=== PATIENT | female | born 1930 | race Caucasian/White ===

== ENCOUNTER 2017-01-10 19:35 | Inpatient (IN) | payer MEDICARE, OTHER ==
[2017-01-10] MEDS ORDERED: Acetaminophen 500 MG Tab ONE (20:22)
[2017-01-10] MEDS ORDERED: Acetaminophen 500 MG Tab PO ONE (20:26)
[2017-01-10 20:42] LABS: CHLORIDE,CL 102 mEq/L (98-106); SODIUM,NA 139 mEq/L (136-145)
--- NOTE | 2017-01-10 21:01 | EDM.PDOC ---
ED HISTORY OF PRESENT ILLNESS - General Chief Complaint: Respiratory Problem Stated Complaint: wheezing, cough Time Seen by Provider: 01/10/17 20:15 Source of Information: Reports: Patient History Limitations: Reports: No limitations - History of Present Illness INITIAL COMMENTS - FREE TEXT/NARRATIVE: REZA IS AN 86 YO FEMALE WHO PRESENTS TO THE ER WITH CONCERNS OF A COUGH AND NOT FEELING WELL. SYMPTOMS INITIALLY STARTED LAST WEEK MONDAY AND HAVE PROGRESSIVELY WORSENED. STATES SHE HAS BEEN RUNNING A LOW GRADE FEVER NOW AND THE COUGH IS GETTING WORSE. ADMITS TO COUGHING UP YELLOWISH PHLEGM. YOHAN, REZA 'S DAUGHTER, IS PRESENT AND STATES SHE FELT SHE NEEDED TO BE SEEN IN THE ER DUE TO THE AUDIBLE WHEEZING. Timing/Duration: Reports: Getting worse, Gradual onset Location, General: Reports: chest Associated Symptoms (General): Reports: cough, cough w sputum, fever/chills, shortness of breath. Denies: chest pain, headaches, nausea/vomiting - Related Data Allergies/ADRs: Allergies Allergy/AdvReac Type Severity Reaction Status Date / Time Penicillins Allergy Rash Verified 01/10/17 19:45 Home Meds: Home Meds Cholecalciferol (Vitamin D3) [Vitamin D] 2,000 unit PO DAILY 11/01/14 [History] Cyanocobalamin (Vitamin B12) [Vitamin B12] 1 tab PO DAILY 11/01/14 [History] Irbesartan [Avapro] 300 mg PO DAILY 11/01/14 [History] Levothyroxine [Synthroid] 50 mg PO DAILY 11/01/14 [History] Lutein/Minerals/Vit A,C & E [Ocuvite] 1 tab PO DAILY 11/01/14 [History] Omeprazole [Omeprazole] 20 mg PO DAILY 11/01/14 [History] Pravastatin [Pravachol] 40 mg PO BEDTIME 11/01/14 [History] Aspirin [Ecotrin] 81 mg PO BEDTIME 08/01/16 [History] Past Medical History HEENT History: Reports: Impaired vision Cardiovascular History: Reports: High cholesterol, Hypertension Musculoskeletal History: Reports: Arthritis Endocrine/Metabolic History: Reports: Hypothyroidism, Other (see below) Other Endocrine/Metabolic History: parotid gland removed - Past Surgical History HEENT Surgical History: Reports: Detached retina Musculoskeletal Surgical History: Reports: Other (see below) Other Musculoskeletal Surgeries/Procedures:: knee surgery, back surgery Social & Family History - Tobacco Use Smoking Status *Q: Never Smoker - Alcohol Use Days Per Week of Alcohol Use: 0 - Recreational Drug Use Recreational Drug Use: No ED ROS GENERAL - Review of Systems Review Of Systems: See Below Constitutional: Reports: fever, weakness HEENT: Reports: No symptoms Respiratory: Reports: Shortness of Breath, Wheezing, Cough, Sputum Cardiovascular: Reports: No symptoms GI/Abdominal: Reports: No symptoms. Denies: Constipation, Diarrhea, Melena, Nausea, Vomiting : Reports: no symptoms Musculoskeletal: Reports: no symptoms Skin: Reports: no symptoms Neurological: Reports: No Symptoms Psychiatric: Reports: No symptoms ED EXAM, GENERAL - Physical Exam Exam: See Below Exam Limited By: No limitations General Appearance: alert, mild distress Ears: normal external exam, normal canal, hearing grossly normal, normal TMs Nose: normal inspection, normal mucosa, no blood Throat/Mouth: Normal inspection, Normal lips, Normal oropharynx, No airway compromise Head: atraumatic, normocephalic Respiratory/Chest: decreased breath sounds, rhonchi, wheezing, prolonged expiration. No: no respiratory distress, accessory muscle use Cardiovascular: regular rate, rhythm, no edema, systolic murmur Peripheral Pulses: 1+: posterior tibial (L), posterior tibial (R), dorsalis pedis (L), dorsalis pedis (R) GI/Abdominal: normal bowel sounds, soft, non tender, no organomegaly, no mass Neurological: alert, oriented, normal cognition, no motor/sensory deficits Psychiatric: normal affect, normal mood Skin Exam: Warm, Dry, Intact, Normal color, No rash Course - Vital Signs Last Recorded V/S: Last Vital Signs Temp 100.4 F 01/10/17 20:30 Pulse 75 01/10/17 19:43 Resp 20 01/10/17 19:43 BP 164/97 H 01/10/17 19:43 Pulse Ox 89 L 01/10/17 19:43 - Orders/Labs/Meds Orders: Active Orders 24 hr Category Date Time Status Patient Status Manage Transfer [TRANSFER] Routine ADT 01/10/17 20:51 Ordered Oxygen Therapy, ED [RC] ASDIRECTED Care 01/10/17 20:07 Active Chest 2V [CR] Stat Exams 01/10/17 20:20 Taken CULTURE BLOOD [BC] Stat Lab 01/10/17 20:15 Received CULTURE BLOOD [BC] Stat Lab 01/10/17 20:22 Received Blood Culture x2 Reflex Set [OM.PC] Stat Oth 01/10/17 20:20 Ordered Resuscitation Status Routine Resus Stat 01/10/17 20:52 Ordered Labs: Laboratory Tests 01/10/17 01/10/17 Range/Units 20:15 20:15 WBC 5.5 (5.0-10.0) 10^3/uL RBC 3.75 L (4.00-5.50) 10^6/uL Hgb 11.1 L (12.0-16.0) g/dL Hct 34.2 L (37.0-47.0) % MCV 91.2 (82.0-94.0) fL MCH 29.6 (27.0-32.0) pg MCHC 32.5 L (33.0-38.0) g/dL RDW Coeff of Li 13.7 (11.0-15.0) % Plt Count 201 (150-400) 10^3/uL Neut % (Auto) 72.2 (35-85) % Lymph % (Auto) 13.2 (10-55) % [place] % (Auto) 11.5 (0-16) % Eos % (Auto) 2.7 (0-5) % Baso % (Auto) 0.4 (0-3) % Neut # (Auto) 3.94 (1.80-7.00) 10^3/uL Lymph # (Auto) 0.72 L (1.00-4.80) 10^3/uL [place] # (Auto) 0.63 (0.00-0.80) 10^3/uL Eos # (Auto) 0.15 (0.00-0.45) 10^3/uL Baso # (Auto) 0.02 10^3/uL Sodium 139 (136-145) mEq/L Potassium 3.8 (3.5-5.0) mEq/L Chloride 102 (98-106) mEq/L Carbon Dioxide 26 (21-32) mmol/L BUN 14 (7-18) mg/dL Creatinine 0.8 (0.6-1.0) mg/dL Est Cr Clr Drug Dosing 38.44 mL/min Estimated GFR (MDRD) > 60 (>=60) mL/min Glucose 143 H D (75-99) mg/dL Calcium 8.4 (8.4-10.1) mg/dL Total Bilirubin 0.3 (0.0-1.0) mg/dL AST 16 (15-37) U/L ALT 20 (12-78) U/L Alkaline Phosphatase 69 (46-116) U/L C-Reactive Protein 1.3 H (0.2-0.8) mg/dL Total Protein 7.1 (6.4-8.2) g/dL Albumin 3.6 (3.4-5.0) g/dL Meds: Medications Discontinued Medications Generic Name Dose Route Start Last Admin Trade Name Freq PRN Reason Stop Dose Admin Acetaminophen 1,000 mg 01/10/17 20:26 01/10/17 20:30 Tylenol Extra Strength PO 01/10/17 20:27 1,000 mg ONETIME ONE Administration Acetaminophen Confirm 01/10/17 20:22 Tylenol Extra Strength Administered 01/10/17 20:23 Dose 1,000 mg .ROUTE .STK-MED ONE Departure - Departure Time of Disposition: 21:00 Disposition: Admitted As Inpatient 64 Condition: fair Clinical Impression: Bronchopneumonia Forms: ED Department Discharge - Problem List & Annotations (1) Bronchopneumonia SNOMED Code(s): 283537703 Code(s): J18.0 - BRONCHOPNEUMONIA, UNSPECIFIED ORGANISM Status: Acute Current Visit: Yes - Problem List Review Problem List Initiated/Reviewed/Updated: Yes - My Orders Last 24 Hours: My Active Orders 01/10/17 20:07 Oxygen Therapy, ED [RC] ASDIRECTED 01/10/17 20:15 CULTURE BLOOD [BC] Stat 01/10/17 20:20 Chest 2V [CR] Stat Blood Culture x2 Reflex Set [OM.PC] Stat 01/10/17 20:22 CULTURE BLOOD [BC] Stat 01/10/17 20:51 Patient Status Manage Transfer [TRANSFER] Routine 01/10/17 20:52 Resuscitation Status Routine - Assessment/Plan Admission H&P: Please use this note as an admission H&P Last 24 Hours: My Active Orders 01/10/17 20:07 Oxygen Therapy, ED [RC] ASDIRECTED 01/10/17 20:15 CULTURE BLOOD [BC] Stat 01/10/17 20:20 Chest 2V [CR] Stat Blood Culture x2 Reflex Set [OM.PC] Stat 01/10/17 20:22 CULTURE BLOOD [BC] Stat 01/10/17 20:51 Patient Status Manage Transfer [TRANSFER] Routine 01/10/17 20:52 Resuscitation Status Routine Plan: O2 saturation 88% on RA which improved to 94% on 2L per NC. Chest x-ray showed concerns of right middle/lower lobe infiltrate. Will admit to Dr. Vazquez's services under acute care. Dr. Vazquez notified of admission. Blood cultures currently pending. Will start IV Rocephin, DuoNebs and SoluMedrol tonight. Sputum culture ordered as well. Reza and her daughter verbalized understanding. Reza was transferred to floor in satisfactory condition.
[2017-01-10] MEDS ORDERED: Docusate Sodium 100 MG Cap PO PRN (21:25)
[2017-01-10] MEDS ORDERED: cefTRIAXone 1 GM Vial IVPUSH SCH (21:25)
[2017-01-10] MEDS ORDERED: Magnesium Hydroxide 400 MG/5 ML Susp 30 ML Cup PO PRN (21:25)
[2017-01-10] MEDS ORDERED: Acetaminophen 325 MG Tab PO PRN (21:25)
[2017-01-10] MEDS ORDERED: methylPREDNISolone Sodium Succinate 125 MG/2 ML SDV IVPUSH SCH (21:45)
[2017-01-10] MEDS: Sodium Chloride 0.9% 1,000 ML IV SCH (21:49)
[2017-01-10] MEDS: Albuterol/Ipratropium 3.0-0.5 MG/3 ML Neb Soln NEB SCH (21:49)
[2017-01-10] MEDS ORDERED: Enoxaparin 40 MG/0.4 ML Syringe SUBCUT SCH (22:00)
[2017-01-11] MEDS: Pantoprazole 40 MG Tab.CR PO SCH (06:58)
[2017-01-11 07:34] LABS: CHLORIDE,CL 102 mEq/L (98-106); SODIUM,NA 139 mEq/L (136-145)
[2017-01-11] MEDS: Losartan 100 MG Tab PO SCH (07:42)
[2017-01-11] MEDS ORDERED: Levothyroxine 50 MCG Tab PO SCH (08:00)
[2017-01-11] MEDS: methylPREDNISolone Sodium Succinate 125 MG/2 ML SDV IVPUSH SCH ×2 (08:30→20:22)
[2017-01-11] MEDS: Albuterol/Ipratropium 3.0-0.5 MG/3 ML Neb Soln NEB SCH ×4 (09:30→20:23)
--- NOTE | 2017-01-11 16:20 | PN ---
DATE: 01/11/2017 S: The patient was admitted with bronchitis. Labs were reviewed. She has a normal CRP white count. She has not had any fevers since admission, and for the most part, she feels better. She has not had any significant drop in sats. She is saturating in the mid to upper 90s on 2 L. O: GENERAL: Shows her to be pleasant and cooperative. Talks in full sentences. HEENT: Benign. NECK: Veins are flat. LUNGS: Lungs are rhonchorous, but minimal wheeze if any. No rales are heard. HEART: She has a loud cardiac murmur, holosystolic throughout the entire precordium, a little more prominent over the second intercostal space on the right sternal area. No peripheral edema is seen. ASSESSMENT: 1. BRONCHITIS WITH BRONCHOSPASM. 2. AORTIC STENOSIS. P: We are going to get an echocardiogram. I am going to continue all her current treatment. She should be able to be home in the next day or two. ANANT/EDWARD /[id number]
[2017-01-11] MEDS: cefTRIAXone 1 GM Vial IVPUSH SCH (20:22)
[2017-01-11] MEDS: Sodium Chloride 0.9% 1,000 ML IV SCH (20:22)
[2017-01-11] MEDS: Aspirin 81 MG Tab.EC PO SCH (20:23)
[2017-01-11] MEDS: Enoxaparin 40 MG/0.4 ML Syringe SUBCUT SCH (20:23)
[2017-01-11] MEDS: Simvastatin 20 MG Tab PO SCH (20:23)
[2017-01-12] MEDS: Levothyroxine 50 MCG Tab PO SCH (06:57)
[2017-01-12] MEDS: Pantoprazole 40 MG Tab.CR PO SCH (06:57)
[2017-01-12 07:56] LABS: CHLORIDE,CL 106 mEq/L (98-106); SODIUM,NA 142 mEq/L (136-145)
[2017-01-12] MEDS: Losartan 100 MG Tab PO SCH (08:02)
[2017-01-12] MEDS: Albuterol/Ipratropium 3.0-0.5 MG/3 ML Neb Soln NEB SCH ×4 (09:13→20:19)
[2017-01-12] MEDS: Azithromycin 500 MG in Sodium Chloride 0.9% 250 ML IV SCH (09:31)
--- NOTE | 2017-01-12 13:03 | PN ---
DATE: 01/12/2017 S: Richard is doing better. Her vitals have been fine. She has been afebrile. Blood pressures have been great. She has not been up and ambulating much. She did get some confusion from her Solu-Medrol last night. She is not having any audible wheezing at this time. O: GENERAL: She is pleasant, alert, and cooperative, is in no distress. NECK: Her neck veins are flat. LUNGS: Lungs are much clear today. There is still some slight expiratory rhonchi, but no rales and no audible wheezing. CARDIAC: Tones are regular. Murmur unchanged. ABDOMEN: Soft. No edema seen. ASSESSMENT: PNEUMONIA WITH BRONCHOSPASM. P: We are going to stop her Solu-Medrol as it did give her some confusion. Continue with nebulizers. Stop her IV fluids. Get her up and ambulating today. We like to wean her off O2 and if she does that, she should be able to be home by tomorrow. Student nursing staff noted she was only started on Rocephin on admission by Keshav. We are going to add Zithromax for standard pneumonia treatment. ANANT/EDWARD /[id number]
[2017-01-12] MEDS: methylPREDNISolone Sodium Succinate 125 MG/2 ML SDV IVPUSH SCH (14:03)
[2017-01-12] MEDS: Enoxaparin 40 MG/0.4 ML Syringe SUBCUT SCH (20:19)
[2017-01-12] MEDS: Simvastatin 20 MG Tab PO SCH (20:20)
[2017-01-12] MEDS: Aspirin 81 MG Tab.EC PO SCH (20:20)
[2017-01-12] MEDS: cefTRIAXone 1 GM Vial IVPUSH SCH (20:20)
[2017-01-13] MEDS: Losartan 100 MG Tab PO SCH (07:38)
[2017-01-13] MEDS: Pantoprazole 40 MG Tab.CR PO SCH (07:38)
[2017-01-13] MEDS: Levothyroxine 50 MCG Tab PO SCH (07:41)
[2017-01-13] MEDS: Azithromycin 500 MG in Sodium Chloride 0.9% 250 ML IV SCH (07:42)
[2017-01-13 07:43] VITALS: BP 184/94
[2017-01-13 08:05] LABS: CHLORIDE,CL 104 mEq/L (98-106); SODIUM,NA 141 mEq/L (136-145)
[2017-01-13] MEDS: Albuterol/Ipratropium 3.0-0.5 MG/3 ML Neb Soln NEB SCH (09:14)
--- NOTE | 2017-01-13 13:04 | DISCH ---
ADMISSION DIAGNOSIS: Pneumonia. DISCHARGE DIAGNOSIS: PNEUMONIA. HISTORY: The patient presented to [facility] with cough, shortness of breath, and wheezing to Keshav Lowry PA-C, in the emergency room. Symptoms have been going on for almost a week and progressively worsening with low-grade fevers. Keshav done appropriate evaluation at the time of her admission. Her temp was 100.4. She had a normal white count and CRP was only minimally elevated. Chest x-ray was recently unremarkable. She was admitted with a clinical diagnosis of bronchopneumonia. HOSPITAL COURSE: The patient was initially started on IV antibiotics. Sputum and blood cultures were obtained. Her initial antibiotic was Rocephin. We added Zithromax when I saw her on rounds the next day. She for the most part has done very well. She did require supplemental O2 for the first few days of her stay. She has been weaned off now, and is saturating at 91% to 92% on room air. She continues to have some occasional wheezing, but is tolerating nebulizers well. Blood cultures were all negative. Sputum culture did show a gram negative karlos, and so I am going to switch her to oral Levaquin as an outpatient for another week, although her white count and CRP have been stable, trending down. At this time, daughter is with her. She does live alone in her advanced age with some mild memory impairment. They will be with her for the next 3 weeks and feel comfortable taking care of her as daughter is a nurse. To go home on q.i.d. DuoNeb for another week and 7 days of Levaquin. We will see her back in clinic next week in followup, and I will be doing that follow up as her regular provider Daniela Parker is off at this time. COMPLICATIONS: Complications during her stay were none. CONSULTATIONS: RT. DISPOSITION: Discharged home. ANANT/EDWARD /[id number]
== END 2017-01-13 11:00 | disposition home or self-care (01) | DRG 195 ==
LOC: CC.ED 19:35 → CC.MS 21:00
PROVIDERS: ADMIT Physician Assistant Medical; ATTEND Family Medicine
DX: J18.0 Bronchopneumonia, unspecified organism (principal); M19.90 Unspecified osteoarthritis, unspecified site; E03.9 Hypothyroidism, unspecified; E78.5 Hyperlipidemia, unspecified; I10 Essential (primary) hypertension; I35.0 Nonrheumatic aortic (valve) stenosis; R09.02 Hypoxemia
CPT/HCPCS: 36415; 71020; 80053; 85025; 86140; 87040 ×2; 99285; A9270; 80048; 83880; 87070; 87077; 87186; 87205; 93306; 94640; 94640-76; 94760; J0456; J0696; J1650; J2930; J7030; J7050